=== PATIENT | female | born 1925 | race African-American/Black ===

== ENCOUNTER 2016-09-25 08:38 | Inpatient (IN) | payer MEDICARE, MEDICAID ==
[2016-09-25] MEDS ORDERED: NORMAL SALINE 1000 ML 1,000 ML IV ONE ×2 (09:15)
[2016-09-25] MEDS ORDERED: IPRATROPIUM/ALBUTEROL 0.5-2.5 MG/3 ML AMPUL NEB ONE (09:20)
--- NOTE | 2016-09-25 09:20 | ER Document Report ---
ED General - General Chief Complaint: Fever Stated Complaint: FEVER Time seen by provider: 09:16 Mode of Arrival: Medic Information source: Emergency Med Personnel Cannot obtain history due to: Dementia Notes: 89-year-old female sent from shelter with report by EMS blood pressure 70/ 51 oxygen saturation of 85% on her baseline 2 L nasal cannula and fever the shelter did not report how high. No family is present patient cannot provide history due to dementia. Patient had recent admission with aspiration pneumonia and was discharged with instructions to be nothing by mouth and receive feedings via her PEG tube. Patient arrives with up-to-date outpatient DO NOT RESUSCITATE paperwork from shelter Physical Exam: General: groans to pain tachypnea HEENT: Normocephalic. Atraumatic. PERRLA. Extraocular movements intact. Oropharynx clear. Dry mucous membranes Neck: Supple. Non-tender. No JVD no adenopathy Respiratory: Scattered rhonchi bilaterally breath sounds equal good aeration no accessory muscle use Cardiovascular: Tachycardic regular PMI not displaced. Abdominal: Normal Inspection. Soft, non-tender. No distension. Normal Bowel Sounds. PEG site appears healthy Back: Non-tender. No deformity or step off. Extremities: Extremities are all warm with 2+ pulses contractures noted to both lower extremities brisk upper refill to all extremities and no lesions identified Neurological: Patient cannot cooperate with formal neurologic testing Skin: Warm. Dry. Normal color. TRAVEL OUTSIDE OF THE [place] IN LAST 30 DAYS: No - Related Data Allergies/Adverse Reactions: sulfamethoxazole [From Bactrim] Allergy (Intermediate, Verified 04/28/15 03:44) Generalized rash trimethoprim [From Bactrim] Allergy (Intermediate, Verified 04/28/15 03:44) Generalized rash benazepril HCl [From Lotrel] Allergy (Verified 04/28/15 03:44) Past Medical History - Social History Smoking Status: Unknown if Ever Smoked Family History: Other - Unobtainable due to dementia - Past Medical History Cardiac Medical History: Reports: Hx Hypertension - hypo also Pulmonary Medical History: Reports: Hx Pneumonia Denies: Hx Tuberculosis Renal/ Medical History: Denies: Hx Peritoneal Dialysis GI Medical History: Reports: Hx Gastroesophageal Reflux Disease Musculoskeltal Medical History: Reports Hx Arthritis Psychiatric Medical History: Reports: Hx Dementia Past Surgical History: Reports: Hx Abdominal Surgery - g-tube placement, Hx Orthopedic Surgery. Denies: Hx Pacemaker - Immunizations Hx Diphtheria, Pertussis, Tetanus Vaccination: Yes Review of Systems - Review of Systems -: Yes ROS unobtainable due to patient's medical condition Physical Exam - Vital signs Vitals: Resp 54 H 09/25/16 08:56 Course - Re-evaluation Re-evalutation: 09/25/16 11:27 Patient was hypotensive in the field with since responded IV fluid bolus. He has no evidence for pneumonia or UTI currently. Said of 177 would suggest that patient is volume depleted she's been started on half-normal saline. Also anticipate use freewater flushes via her PEG tube. I discussed case with Dr. Garcia hospitalist service and that service will be admitting the patient - Vital Signs Vital signs: Temp Pulse Resp BP Pulse Ox 101.9 F H 45 H 119/77 95 09/25/16 09:00 09/25/16 10:01 09/25/16 10:01 09/25/16 10:01 - Laboratory Result Diagrams: 09/25/16 09:54 09/25/16 09:54 Laboratory results interpreted by me: 09/25/16 09/25/16 09/25/16 09:54 09:54 09:54 MCHC 31.2 L RDW 16.9 H Plt Count 107 L Band Neutrophils % 11 H Monocytes % (Manual) 1 L Sodium 177.3 H* Chloride 138 H BUN 73 H Creatinine 1.33 H Est GFR ( Amer) 45 L Est GFR (Non-Af Amer) 38 L Glucose 265 H Lactic Acid 3.0 H Calcium 8.0 L Albumin 2.7 L Urine Protein Urine Ketones Urine Ascorbic Acid 09/25/16 10:15 MCHC RDW Plt Count Band Neutrophils % Monocytes % (Manual) Sodium Chloride BUN Creatinine Est GFR ( Amer) Est GFR (Non-Af Amer) Glucose Lactic Acid Calcium Albumin Urine Protein 100 H Urine Ketones TRACE H Urine Ascorbic Acid 40 H - Diagnostic Test Radiology reviewed: Image reviewed, Reports reviewed - EKG Interpretation by Me Additional EKG results interpreted by me: 09/25/16 09:20 EKG reviewed by myself shows sinus tachycardia 110 mild LVH pattern Discharge - Discharge Clinical Impression: Hypernatremia Dementia Qualifiers: Dementia type: unspecified type Dementia behavioral disturbance: without behavioral disturbance Qualified Code(s): F03.90 - Unspecified dementia without behavioral disturbance Condition: Serious Disposition: ADMITTED INPATIENT Admitting Provider: Hospitalist Unit Admitted: Medical Floor
[2016-09-25 10:27] LABS: HEMATOCRIT 42.8 % (36.0-47.0); HEMOGLOBIN 13.4 g/dL (12.0-15.5); HGB HCT DIFFERENCE -2.6; MEAN CORPUSCULAR HEMOGLOBIN 30.1 pg (27.0-33.4); MEAN CORPUSCULAR HGB CONC 31.2 g/dL (32.0-36.0); MEAN CORPUSCULAR VOLUME 96 fl (80-97); RED BLOOD COUNT 4.44 10^6/uL (3.72-5.28); RED CELL DISTRIBUTION WIDTH 16.9 % (11.5-14.0); WHITE BLOOD COUNT 7.6 10^3/uL (4.0-10.5)
[2016-09-25 10:37] LABS: ALANINE AMINOTRANSFERASE 22 U/L (9-52); ALBUMIN 2.7 g/dL (3.5-5.0); ALKALINE PHOSPHATASE 99 U/L (38-126); ANION GAP 15 (5-19); ASPARTATE AMINO TRANSFERASE 34 U/L (14-36); BILIRUBIN,DIRECT 0.2 mg/dL (0.0-0.4); BILIRUBIN,TOTAL 0.7 mg/dL (0.2-1.3); BLOOD UREA NITROGEN 73 mg/dL (7-20); CARBON DIOXIDE 24 mmol/L (22-30); CHLORIDE 138 mmol/L (98-107); CREATININE RESULT 1.33 mg/dL (0.52-1.25); GLUCOSE 265 mg/dL (75-110); LIPASE 56.2 U/L (23-300); POTASSIUM 4.6 mmol/L (3.6-5.0)
[2016-09-25 10:47] LABS: APPEARANCE,URINE CLOUDY; BILIRUBIN,URINE NEGATIVE (NEGATIVE); GLUCOSE, URINE NEGATIVE (NEGATIVE); KETONES,URINE TRACE mg/dL (NEGATIVE); LEUKOCYTE ESTERASE,URINE NEGATIVE (NEGATIVE); NITRITE,URINE NEGATIVE (NEGATIVE); PROTEIN,URINE 100 mg/dL (NEGATIVE); UROBILINOGEN,URINE NEGATIVE mg/dL (<2.0)
[2016-09-25 10:47] LABS: BASOPHILS % (MANUAL) 1 % (0-2); EOSINOPHILS % (MANUAL) 0 % (0-6); LYMPHOCYTES % (MANUAL) 17 % (13-45); TOTAL CELLS COUNTED 100
[2016-09-25 10:48] LABS: ANISOCYTOSIS 1+; BAND NEUTROPHILS % (MANUAL) 11 % (3-5); SODIUM 177.3 mmol/L (137-145)
[2016-09-25] MEDS ORDERED: 1/2 NORMAL SALINE 1,000 ML IV ONE (10:48)
--- NOTE | 2016-09-25 13:25 | EKG REPORT ---
SEVERITY:- ABNORMAL ECG - SINUS TACHYCARDIA LEFT ANTERIOR FASCICULAR BLOCK CONSIDER LEFT VENTRICULAR HYPERTROPHY BORDERLINE PROLONGED QT INTERVAL : Confirmed by: Genaro Sin MD 25-Sep-2016 13:23:27
[2016-09-25] MEDS ORDERED: ACETAMINOPHEN 325 MG TABLET GT PRN (14:31)
[2016-09-25] MEDS ORDERED: DEXTROSE 40% GEL 15 GM TUBE PO PRN ×2 (14:31)
[2016-09-25] MEDS ORDERED: 1/2 NORMAL SALINE 1,000 ML IV PRN (14:31)
[2016-09-25] MEDS ORDERED: GLUCAGON,HUMAN RECOMB 1 MG INJ SUBCUT PRN (14:31)
[2016-09-25] MEDS ORDERED: ONDANSETRON HCL INJ/PF 4 MG/2 ML SDV IV PRN (14:31)
[2016-09-25] MEDS ORDERED: DEXTROSE 50%-WATER 25 GM/50 ML DISP.SYRIN IV PRN ×2 (14:31)
--- NOTE | 2016-09-25 15:44 | PDOC H&P ---
History of Present Illness Admission Date/PCP: 09/25/16 14:32 ALICIA DUMONT Patient complains of: Fever History of Present Illness: ENID SILVA is a 89 year old female, resident of a local sn[facility], with advanced dementia and dysphagia on feeding tube brought to the emergency room because of fever. The patient is nonverbal and unable to communicate therefore history is unobtainable. Information obtained from previous records, emergency room records, snf transfer form. The patient was hospitalized last month for aspiration, he is not on an indwelling Escobar catheter, she has an ankle fracture recently on the R, she has no reported decubitus ulcers. Respirations reportedly elevated. No desaturation was noted however patient was hypotensive when brought to the emergency room. Patient was given intravenous fluid and blood pressure stabilized. Serum sodium elevated at 177. The patient was then referred for admission. Chest x-ray did not reveal an acute infiltrate but chronic interstitial changes. Urinalysis is pending. Creatinine elevated then baseline. Past Medical History Past Medical History: Medication reconciliation form pending verification from the snf or pharmacy. Cardiac Medical History: Reports: Hypertension - hypo also Pulmonary Medical History: Reports: Pneumonia Denies: Tuberculosis GI Medical History: Reports: Gastroesophageal Reflux Disease, Other - Dysphagia status post PEG Musculoskeltal Medical History: Reports: Arthritis Psychiatric Medical History: Reports: Dementia Past Surgical History Past Surgical History: Reports: Orthopedic Surgery, Other - Feeding tube placement Denies: Amputation, Hip Replacement, Pacemaker Social History Information Source: [facility] Records Smoking Status: Unknown if Ever Smoked Frequency of Alcohol Use: None Hx Recreational Drug Use: No Drugs: None Hx Prescription Drug Abuse: No Family History Family History: Other - Unobtainable due to dementia Parental Family History Reviewed: No Children Family History Reviewed: NA Sibling(s) Family History Reviewed.: NA Medication/Allergy Allergies/Adverse Reactions: sulfamethoxazole [From Bactrim] Allergy (Intermediate, Verified 04/28/15 03:44) Generalized rash trimethoprim [From Bactrim] Allergy (Intermediate, Verified 04/28/15 03:44) Generalized rash benazepril HCl [From Lotrel] Allergy (Verified 04/28/15 03:44) Review of Systems ROS unobtainable: Due to mental status - Patient has an out of facility DO NOT RESUSCITATE Physical Exam Vital Signs: Temp Pulse Resp BP Pulse Ox 101.9 F H 28 H 124/75 97 04/10/17 09:00 09/25/16 13:01 09/25/16 13:00 09/25/16 13:01 General appearance: PRESENT: mild distress, thin, other - Contracted Head exam: PRESENT: normocephalic Eye exam: PRESENT: conjunctiva pale, PERRLA - Sluggish Ear exam: PRESENT: normal external ear exam. ABSENT: drainage Mouth exam: PRESENT: dry mucosa Neck exam: PRESENT: other - Contracted. ABSENT: carotid bruit, JVD, thyromegaly Respiratory exam: PRESENT: rhonchi - Occasional, other - Patient's scoliotic. ABSENT: wheezes Cardiovascular exam: PRESENT: RRR, systolic murmur - 2/6 in the left sternal border. ABSENT: gallop GI/Abdominal exam: PRESENT: hypoactive bowel sounds, soft, tenderness - Questionable tenderness as patient grimace on palpation. ABSENT: distended, hernia Rectal exam: PRESENT: deferred Extremities exam: PRESENT: other - Splint noted on the right ankle. ABSENT: pedal edema Neurological exam: PRESENT: awake, other - nonverbal Psychiatric exam: ABSENT: agitated Focused psych exam: ABSENT: restlessness Skin exam: PRESENT: dry, warm, other - I did not see any open wound on the ankles or feet bilateral, nor on the hips or lumbosacral area at this time. ABSENT: cyanosis Results Impressions: Chest X-Ray 09/25/16 09:14 IMPRESSION: CHRONIC INTERSTITIAL CHANGES. CHRONIC BONY DEFORMITIES. NO ACUTE RADIOGRAPHIC FINDING IN THE CHEST. Assessment & Plan - Diagnosis (1) Hypotension Qualifiers: Hypotension type: unspecified hypotension type Qualified Code(s): I95.9 - Hypotension, unspecified Is this a current diagnosis for this admission?: Yes (2) Hypernatremia Is this a current diagnosis for this admission?: Yes (3) Fever Qualifiers: Fever type: unspecified Qualified Code(s): R50.9 - Fever, unspecified Is this a current diagnosis for this admission?: Yes (4) Thrombocytopenia Is this a current diagnosis for this admission?: Yes (5) Hyperglycemia Is this a current diagnosis for this admission?: Yes (6) Closed right ankle fracture Qualifiers: Encounter type: initial encounter Qualified Code(s): S82.891A - Other fracture of right lower leg, initial encounter for closed fracture Is this a current diagnosis for this admission?: Yes (7) Dementia Qualifiers: Dementia type: unspecified type Dementia behavioral disturbance: without behavioral disturbance Qualified Code(s): F03.90 - Unspecified dementia without behavioral disturbance Is this a current diagnosis for this admission?: Yes (8) Dysphagia Qualifiers: Dysphagia type: unspecified Qualified Code(s): R13.10 - Dysphagia, unspecified Is this a current diagnosis for this admission?: Yes (9) Hypertension Qualifiers: Hypertension type: essential hypertension Qualified Code(s): I10 - Essential (primary) hypertension Is this a current diagnosis for this admission?: Yes - Time Time Spent: 30 to 50 Minutes - Inpatient Certification Based on my medical assessment, after consideration of the patient's comorbidities, presenting symptoms, or acuity I expect that the services needed warrant INPATIENT care.: Yes I certify that my determination is in accordance with my understanding of Medicare's requirements for reasonable and necessary INPATIENT services [42 CFR 412.3e].: Yes Medical Necessity: Need Close Monitoring Due to Risk of Patient Decompensation, Need For IV Fluids, Risk of Complication if Not Cared For in Hospital Post Hospital Care: D/C Medical Laboratory Manager Documentation - Plan Summary Plan Summary: We are going to admit the patient to the medical floor. She is a DO NOT RESUSCITATE. She will be hydrated with half-normal saline, begin antibiotic to cover for aspiration empirically, obtain urine culture, and KUB for impaction. In the meantime I will hold antihypertensive medications. We will check TSH and hemoglobin A1c. We will monitor platelet count. We will monitor creatinine as well. Frequent body repositioning to prevent decubitus ulcer. Further testing depends on the initial evaluation as outlined above.
[2016-09-25] MEDS ORDERED: DOCUSATE SODIUM 100 MG/10 ML UDC PEG SCH (18:00)
[2016-09-25] MEDS ORDERED: CEFTRIAXONE 1 GM/D5W RTU 1 GM/50 ML RTUPB IV SCH (18:00)
[2016-09-25] MEDS: HEPARIN SOD (PORCINE) 5,000 UNIT/ML 1 ML SYRINGE SUBCUT SCH (21:28)
[2016-09-25] MEDS: CLINDAMYCIN 600 MG/D5W RTU 50 ML IV SCH (21:29)
[2016-09-26] MEDS: CLINDAMYCIN 600 MG/D5W RTU 50 ML IV SCH (05:58)
[2016-09-26] MEDS: HEPARIN SOD (PORCINE) 5,000 UNIT/ML 1 ML SYRINGE SUBCUT SCH ×3 (05:58→22:09)
[2016-09-26] MEDS: LANSOPRAZOLE 30 MG TAB.RAP.DR PEG SCH (05:59)
[2016-09-26 06:20] LABS: ABSOLUTE EOSINOPHILS # (AUTO) 0.2 10^3/uL (0.0-0.6); ABSOLUTE LYMPHOCYTES (AUTO) 1.5 10^3/uL (0.5-4.7); ABSOLUTE MONOCYTES (AUTO) 0.7 10^3/uL (0.1-1.4); ABSOLUTE NEUT (AUTO) 9.5 10^3/uL (1.7-8.2); BASOPHILS % (AUTO) 0.2 % (0-2); EOSINOPHILS % (AUTO) 1.4 % (0-6); HEMATOCRIT 33.4 % (36.0-47.0); HGB HCT DIFFERENCE -1.6; LYMPHOCYTES % (AUTO) 12.6 % (13-45); MEAN CORPUSCULAR HGB CONC 31.8 g/dL (32.0-36.0); MEAN CORPUSCULAR VOLUME 97 fl (80-97); RED BLOOD COUNT 3.43 10^6/uL (3.72-5.28); RED CELL DISTRIBUTION WIDTH 16.8 % (11.5-14.0); SEGMENTED NEUTROPHILS % (AUTO) 79.8 % (42-78); WHITE BLOOD COUNT 11.9 10^3/uL (4.0-10.5)
[2016-09-26 06:37] LABS: BLOOD UREA NITROGEN 70 mg/dL (7-20); CALCIUM 7.8 mg/dL (8.4-10.2); CARBON DIOXIDE 24 mmol/L (22-30); CHLORIDE 132 mmol/L (98-107); CREATININE RESULT 1.13 mg/dL (0.52-1.25); GLUCOSE 118 mg/dL (75-110); POTASSIUM 3.8 mmol/L (3.6-5.0)
[2016-09-26 06:38] LABS: ANION GAP 15 (5-19)
[2016-09-26 06:42] LABS: HEMOGLOBIN 10.6 g/dL (12.0-15.5)
[2016-09-26 06:43] LABS: SODIUM 170.6 mmol/L (137-145)
[2016-09-26] MEDS ORDERED: ZINC OXIDE 20% OINTMENT 28.35 GM TP PRN (11:22)
[2016-09-26] MEDS ORDERED: DEXTROSE 5%-WATER 1000 ML 1,000 ML IV PRN (11:23)
[2016-09-26] MEDS ORDERED: PHARMACY COMMUNICATION ORDER MC NR (11:30)
[2016-09-26] MEDS ORDERED: VANCOMYCIN HCL 0 MG in DEXTROSE 5%-WATER 250 ML IV NR (11:30)
[2016-09-26] MEDS ORDERED: LACTULOSE SYRUP 20 GM/30 ML UDCUP PR ONE (13:00)
[2016-09-26] MEDS: IPRATROPIUM/ALBUTEROL 0.5-2.5 MG/3 ML AMPUL NEB SCH ×2 (14:02→20:10)
[2016-09-26] MEDS: VANCOMYCIN HCL 500 MG in DEXTROSE 5%-WATER 100 ML IV SCH (18:25)
--- NOTE | 2016-09-26 19:42 | PDOC PROGRESS REPORT ---
Subjective Progress Note for:: 09/26/16 Subjective:: Patient seen earlier today on morning rounds. Unable to obtain review of systems from patient secondary to her mental status. Physical Exam Vital Signs: Temp Pulse Resp BP Pulse Ox 97.7 F 77 22 H 136/79 H 95 09/26/16 14:59 09/26/16 14:59 09/26/16 14:59 09/26/16 14:59 09/26/16 17:15 Intake & Output 09/25/16 09/26/16 09/27/16 06:59 06:59 06:59 Intake Total 0 0 Output Total 0 Balance 0 0 Weight 51.5 kg Exam: General: Lethargic, responsive only to pain, no acute respiratory distress HEENT: oropharynx is dry, pink, no scleral icterus, no conjunctival injection Neck: No JVD, trachea midline Chest: Clear to auscultation bilaterally, no wheezes rhonchi or rales CV: Regular rate and rhythm, normal S1 and S2, +2/6 murmur; no rub or gallop Abdomen: Distended, mildly tender to palpation diffusely, diminished bowel sounds; large open excoriated area around PEG tube with fecal matter present Extremities: No cyanosis, clubbing or edema; right ankle deformity Neuro: Aphasic, contracted Results Laboratory Results: 09/26/16 06:13 09/26/16 06:13 09/25/16 09/25/16 09/26/16 20:22 21:00 06:13 WBC 11.9 H RBC 3.43 L Hgb 10.6 L D Hct 33.4 L MCV 97 MCH 31.0 MCHC 31.8 L RDW 16.8 H Plt Count 100 L Seg Neutrophils % 79.8 H Lymphocytes % 12.6 L Monocytes % 6.0 Eosinophils % 1.4 Basophils % 0.2 Absolute Neutrophils 9.5 H Absolute Lymphocytes 1.5 Absolute Monocytes 0.7 Absolute Eosinophils 0.2 Absolute Basophils 0.0 Sodium Potassium Chloride Carbon Dioxide Anion Gap BUN Creatinine Est GFR ( Amer) Est GFR (Non-Af Amer) Glucose Calcium TSH Cancelled 4.16 09/26/16 06:13 WBC RBC Hgb Hct MCV MCH MCHC RDW Plt Count Seg Neutrophils % Lymphocytes % Monocytes % Eosinophils % Basophils % Absolute Neutrophils Absolute Lymphocytes Absolute Monocytes Absolute Eosinophils Absolute Basophils Sodium 170.6 H* Potassium 3.8 Chloride 132 H Carbon Dioxide 24 Anion Gap 15 BUN 70 H Creatinine 1.13 Est GFR ( Amer) 55 L Est GFR (Non-Af Amer) 45 L Glucose 118 H Calcium 7.8 L TSH Impressions: KUB X-Ray 09/25/16 00:00 IMPRESSION: Fecal impaction with large amount of stool in the rectum. Large amount of stool in the descending and sigmoid colon. Chest X-Ray 09/25/16 09:14 IMPRESSION: CHRONIC INTERSTITIAL CHANGES. CHRONIC BONY DEFORMITIES. NO ACUTE RADIOGRAPHIC FINDING IN THE CHEST. Ankle X-Ray 09/26/16 00:00 IMPRESSION: Medial and lateral malleolar fractures, posterior distal right tibial articular fracture. Fracture lines are mildly displaced however the ankle mortise appears grossly intact. Assessment & Plan - Diagnosis (1) Trimalleolar fracture of ankle, closed Qualifiers: Encounter type: initial encounter Laterality: right Qualified Code(s): S82.851A - Displaced trimalleolar fracture of right lower leg, initial encounter for closed fracture Is this a current diagnosis for this admission?: YesPlan: Patient with trimalleolar fracture of the right ankle. Will consult orthopedics for appropriate management. Unsure as to the duration and cause of this injury. Concerned as patient appears to be normally immobile. Replace splint. (2) Sepsis Qualifiers: Sepsis type: sepsis due to unspecified organism Qualified Code(s): A41.9 - Sepsis, unspecified organism Is this a current diagnosis for this admission?: YesPlan: Concern for Escherichia coli and other gram-negative enteric organisms due to patient's fecal impaction (3) Aspiration pneumonia Qualifiers: Aspiration pneumonia type: unspecified Laterality: bilateral Lung location: lower lobe of lung Qualified Code(s): J69.0 - Pneumonitis due to inhalation of food and vomit Is this a current diagnosis for this admission?: YesPlan: Likely secondary to fecal aspiration from fecal impaction. Will change patient to vancomycin and Zosyn given her living in a residential facility with concerns possibly also for healthcare associated pneumonia. (4) Dementia Qualifiers: Dementia type: unspecified type Dementia behavioral disturbance: without behavioral disturbance Qualified Code(s): F03.90 - Unspecified dementia without behavioral disturbance Is this a current diagnosis for this admission?: YesPlan: Supportive care (5) Hypernatremia Is this a current diagnosis for this admission?: YesPlan: We'll transition patient to D5W. Once her fecal impaction is improved will start free water flushes. (6) Thrombocytopenia Is this a current diagnosis for this admission?: YesPlan: Likely secondary to sepsis (7) Acute hypoxemic respiratory failure Is this a current diagnosis for this admission?: YesPlan: Continue oxygen as needed to maintain a saturation greater than 94% (8) Dementia Qualifiers: Dementia type: unspecified type Dementia behavioral disturbance: without behavioral disturbance Qualified Code(s): F03.90 - Unspecified dementia without behavioral disturbance Is this a current diagnosis for this admission?: YesPlan: Supportive care (9) Encephalopathy Is this a current diagnosis for this admission?: YesPlan: Patient appears to be altered more than baseline likely secondary to hypernatremia. (10) Hypertension Qualifiers: Hypertension type: essential hypertension Qualified Code(s): I10 - Essential (primary) hypertension Is this a current diagnosis for this admission?: Yes - Time Time Spent with patient: 25-34 minutes Medications reviewed and adjusted accordingly: Yes
[2016-09-26] MEDS: NYSTATIN CREAM 15 GM TP SCH (22:03)
[2016-09-26] MEDS: PIPERACILLIN SODIUM/TAZOBACTAM 3.375 GM in NORMAL SALINE 100 ML IV SCH (22:08)
[2016-09-27] MEDS: PIPERACILLIN SODIUM/TAZOBACTAM 3.375 GM in NORMAL SALINE 100 ML IV SCH ×3 (04:17→21:13)
[2016-09-27] MEDS: LANSOPRAZOLE 30 MG TAB.RAP.DR PEG SCH (05:21)
[2016-09-27] MEDS: HEPARIN SOD (PORCINE) 5,000 UNIT/ML 1 ML SYRINGE SUBCUT SCH ×3 (05:21→21:06)
[2016-09-27] MEDS ORDERED: NORMAL SALINE 1000 ML 500 ML IV ONE (06:00)
--- NOTE | 2016-09-27 07:18 | PDOC CONSULTATION ---
Consultation Consult Date: 09/27/16 Attending physician:: LICO GRIFFITH Consult reason:: Ankle fracture History of Present Illness Admission Date/PCP: 09/25/16 14:32 ALICIA DUMONT History of Present Illness: ENID SILVA is a 89 year old female, resident of a local [facility], with advanced dementia and dysphagia on feeding tube brought to the emergency room because of fever. The patient is nonverbal and unable to communicate therefore history is unobtainable. According to history exact etiology patient's right ankle fracture. Past Medical History Cardiac Medical History: Reports: Hypertension - hypo also Pulmonary Medical History: Reports: Pneumonia Denies: Tuberculosis GI Medical History: Reports: Gastroesophageal Reflux Disease, Other - Dysphagia status post PEG Musculoskeltal Medical History: Reports: Arthritis Psychiatric Medical History: Reports: Dementia Past Surgical History Past Surgical History: Reports: Orthopedic Surgery, Other - Feeding tube placement Denies: Amputation, Hip Replacement, Pacemaker Social History Smoking Status: Never Smoker Frequency of Alcohol Use: None Hx Recreational Drug Use: No Drugs: None Hx Prescription Drug Abuse: No - Advance Directive Resuscitation Status: Do Not Resuscitate Family History Family History: Other - Unobtainable due to dementia Parental Family History Reviewed: No Children Family History Reviewed: No Sibling(s) Family History Reviewed.: No Medication/Allergy Home Medications: Acetaminophen [Tylenol Susp 160 mg/5 mL Oral Syring] 20 ml GT Q4HP PRN 09/25/16 Amlodipine Besylate [Norvasc 5 mg Tablet] 5 mg GT DAILY 09/25/16 Lansoprazole [Prevacid 15 mg Odt Tablet] 15 mg GT DAILY 09/25/16 Losartan/Hydrochlorothiazide [Hyzaar 100-12.5 Tablet] 1 tab GT DAILY 09/25/16 Multivits W-Min/Ferrous Gluc [Certa Blanquita Liquid] 15 ml GT DAILY 09/25/16 Potassium Chloride [Kaon-Cl 20 Meq/15 ml Udcup] 15 ml GT DAILY 09/25/16 Allergies/Adverse Reactions: sulfamethoxazole [From Bactrim] Allergy (Intermediate, Verified 04/28/15 03:44) Generalized rash trimethoprim [From Bactrim] Allergy (Intermediate, Verified 04/28/15 03:44) Generalized rash benazepril HCl [From Lotrel] Allergy (Verified 04/28/15 03:44) Review of Systems ROS unobtainable: Due to mental status Physical Exam Vital Signs: Temp Pulse Resp BP Pulse Ox 98.1 F 93 29 H 122/98 H 100 09/26/16 23:40 09/26/16 23:40 09/26/16 23:40 09/26/16 23:40 09/26/16 23:40 Intake & Output 09/25/16 09/26/16 09/27/16 06:59 06:59 06:59 Intake Total 0 1200 Output Total 0 Balance 0 1200 Weight 51.5 kg General appearance: PRESENT: no acute distress, thin Head exam: PRESENT: normocephalic Eye exam: PRESENT: conjunctiva pale Ear exam: PRESENT: normal external ear exam Mouth exam: PRESENT: moist Respiratory exam: PRESENT: unlabored Cardiovascular exam: PRESENT: RRR Pulses: PRESENT: normal dorsalis pedis pul Musculoskeletal exam: PRESENT: other - Right lower extremity. There is evidence of skin breakdown along the medial and lateral malleoli. Mild swelling. Tenderness to palpation. Pain with range of motion. Unable to assess neurologic status given patient's mental status. Patient contracted position Neurological exam: PRESENT: awake, other - Disoriented to time place and situation. Psychiatric exam: PRESENT: flat affect Results Laboratory Results: 09/26/16 06:13 09/26/16 06:13 Impressions: KUB X-Ray 09/25/16 00:00 IMPRESSION: Fecal impaction with large amount of stool in the rectum. Large amount of stool in the descending and sigmoid colon. Chest X-Ray 09/25/16 09:14 IMPRESSION: CHRONIC INTERSTITIAL CHANGES. CHRONIC BONY DEFORMITIES. NO ACUTE RADIOGRAPHIC FINDING IN THE CHEST. Ankle X-Ray 09/26/16 00:00 IMPRESSION: Medial and lateral malleolar fractures, posterior distal right tibial articular fracture. Fracture lines are mildly displaced however the ankle mortise appears grossly intact. Status: Image reviewed by me - I have reviewed patient's radiographs which demonstrate significant osteopenia. Trimalleolar ankle fracture early evidence of callus formation. Mild subluxation dorsally. Assessment & Plan - Diagnosis (1) Trimalleolar fracture of ankle, closed Qualifiers: Encounter type: initial encounter Laterality: right Qualified Code(s): S82.851A - Displaced trimalleolar fracture of right lower leg, initial encounter for closed fracture Is this a current diagnosis for this admission?: YesPlan: Unable to obtain adequate history determine cause of patient's ankle fracture. Given her significant contractures and lack of mobility this is unlikely secondary to a fall a more associated with a torsional type injury. Given radiographs do demonstrate early evidence of healing there is no subluxation I feel strict immobilization will likely cause more skin breakdown issues as opposed to improving patient condition. Thus patient will begin awa bandage as opposed to ankle brace because continuously removing is likely causing more rotation and pain.
[2016-09-27] MEDS ORDERED: NORMAL SALINE 1000 ML 1,000 ML IV ONE (07:59)
[2016-09-27] MEDS: IPRATROPIUM/ALBUTEROL 0.5-2.5 MG/3 ML AMPUL NEB SCH ×3 (08:06→20:46)
[2016-09-27 09:02] LABS: HEMATOCRIT 31.8 % (36.0-47.0); HGB HCT DIFFERENCE -1.8; MEAN CORPUSCULAR HEMOGLOBIN 30.8 pg (27.0-33.4); MEAN CORPUSCULAR HGB CONC 31.4 g/dL (32.0-36.0); MEAN CORPUSCULAR VOLUME 98 fl (80-97); RED BLOOD COUNT 3.23 10^6/uL (3.72-5.28); RED CELL DISTRIBUTION WIDTH 16.9 % (11.5-14.0); WHITE BLOOD COUNT 10.2 10^3/uL (4.0-10.5)
[2016-09-27 09:17] LABS: ANION GAP 15 (5-19); BLOOD UREA NITROGEN 62 mg/dL (7-20); CALCIUM 7.3 mg/dL (8.4-10.2); CARBON DIOXIDE 20 mmol/L (22-30); CHLORIDE 133 mmol/L (98-107); CREATININE RESULT 1.29 mg/dL (0.52-1.25); GLUCOSE 135 mg/dL (75-110); SODIUM 167.5 mmol/L (137-145)
[2016-09-27 09:58] LABS: BASOPHILS % (MANUAL) 0 % (0-2); EOSINOPHILS % (MANUAL) 2 % (0-6); LYMPHOCYTES % (MANUAL) 5 % (13-45); TOTAL CELLS COUNTED 100
[2016-09-27 10:02] LABS: ANISOCYTOSIS 1+; ROULEAUX SLIGHT
[2016-09-27] MEDS ORDERED: POTASSI CL 20 MEQ/50 ML RIDER 20 MEQ/50 ML RTUPB IV SCH (12:00)
[2016-09-27] MEDS ORDERED: DEXTROSE 5%-WATER 1000 ML 1,000 ML IV PRN (15:57)
[2016-09-27] MEDS ORDERED: OXYCODONE HCL IR 5 MG TABLET PEG PRN (16:01)
[2016-09-27] MEDS ORDERED: MORPHINE SULFATE 10 MG/ML INJ IV PRN (16:02)
--- NOTE | 2016-09-27 16:08 | PDOC PROGRESS REPORT ---
Subjective Progress Note for:: 09/27/16 Subjective:: Patient seen earlier today on morning rounds. Unable to obtain review of systems from patient secondary to her mental status. Discussed case with her son who is present at bedside. Physical Exam Vital Signs: Temp Pulse Resp BP Pulse Ox 99.4 F 91 29 H 91/49 L 99 09/27/16 04:45 09/27/16 04:45 09/27/16 04:45 09/27/16 04:45 09/27/16 04:45 Intake & Output 09/26/16 09/27/16 09/28/16 06:59 06:59 06:59 Intake Total 0 1200 Output Total 0 Balance 0 1200 Weight 51.5 kg 53.1 kg Exam: General: Lethargic, responsive only to pain, tachypnea HEENT: oropharynx is dry, pink, no scleral icterus, no conjunctival injection Neck: No JVD, trachea midline Chest: Clear to auscultation bilaterally, no wheezes rhonchi or rales CV: Tachycardic, Regular rate and rhythm, normal S1 and S2, +2/6 murmur; no rub or gallop Abdomen: Distended, mildly tender to palpation diffusely, diminished bowel sounds; large open excoriated area around PEG tube with excoriation Extremities: No cyanosis, clubbing or edema; right ankle deformity Neuro: Aphasic, contracted Results Laboratory Results: 09/26/16 06:13 09/26/16 06:13 Impressions: KUB X-Ray 09/25/16 00:00 IMPRESSION: Fecal impaction with large amount of stool in the rectum. Large amount of stool in the descending and sigmoid colon. Chest X-Ray 09/25/16 09:14 IMPRESSION: CHRONIC INTERSTITIAL CHANGES. CHRONIC BONY DEFORMITIES. NO ACUTE RADIOGRAPHIC FINDING IN THE CHEST. Ankle X-Ray 09/26/16 00:00 IMPRESSION: Medial and lateral malleolar fractures, posterior distal right tibial articular fracture. Fracture lines are mildly displaced however the ankle mortise appears grossly intact. Assessment & Plan - Diagnosis (1) Sepsis Qualifiers: Sepsis type: sepsis due to unspecified organism Qualified Code(s): A41.9 - Sepsis, unspecified organism Is this a current diagnosis for this admission?: YesPlan: Concern for Escherichia coli and other gram-negative enteric organisms due to patient's fecal impaction. Continue patient on vancomycin and Zosyn. Consider addition of Levaquin and Zithromax for atypical organisms. (2) Aspiration pneumonia Qualifiers: Aspiration pneumonia type: unspecified Laterality: bilateral Lung location: lower lobe of lung Qualified Code(s): J69.0 - Pneumonitis due to inhalation of food and vomit Is this a current diagnosis for this admission?: YesPlan: Likely secondary to fecal aspiration from fecal impaction. Patient to vancomycin and Zosyn day #2. Given her living in a residential facility with concerns possibly also for healthcare associated pneumonia. (3) Trimalleolar fracture of ankle, closed Qualifiers: Encounter type: initial encounter Laterality: right Qualified Code(s): S82.851A - Displaced trimalleolar fracture of right lower leg, initial encounter for closed fracture Is this a current diagnosis for this admission?: YesPlan: Patient with trimalleolar fracture of the right ankle. Will consult orthopedics for appropriate management. We'll place Sathya bandage as indicated by orthopedics. Discussed with patient's son and very unclear as to cause for this type of torsion injury for this patient. Concern at this time for potential abuse will contact [facility]PS. (4) Dementia Qualifiers: Dementia type: unspecified type Dementia behavioral disturbance: without behavioral disturbance Qualified Code(s): F03.90 - Unspecified dementia without behavioral disturbance Is this a current diagnosis for this admission?: YesPlan: Supportive care Have consulted palliative care (5) Hypernatremia Is this a current diagnosis for this admission?: YesPlan: Patient on D5W. Once her fecal impaction is improved will start free water flushes. (6) Thrombocytopenia Is this a current diagnosis for this admission?: YesPlan: Likely secondary to sepsis (7) Acute hypoxemic respiratory failure Is this a current diagnosis for this admission?: YesPlan: Continue oxygen as needed to maintain a saturation greater than 94% (8) Encephalopathy Is this a current diagnosis for this admission?: YesPlan: Patient appears to be altered more than baseline likely secondary to hypernatremia. (9) Hypertension Qualifiers: Hypertension type: essential hypertension Qualified Code(s): I10 - Essential (primary) hypertension Is this a current diagnosis for this admission?: Yes - Time Time Spent with patient: 35 or more minutes Medications reviewed and adjusted accordingly: Yes - Inpatient Certification Medical Necessity: Need For IV Fluids Post Hospital Care: D/C Emergency Communications Operator Documentation
[2016-09-27] MEDS: NYSTATIN CREAM 15 GM TP SCH (21:04)
[2016-09-27] MEDS: BACITRACIN ZINC OINTMENT 15 GM TP SCH (21:04)
[2016-09-27] MEDS: MINERAL OIL ENEMA 133 ML PR SCH (21:04)
[2016-09-27] MEDS: VANCOMYCIN HCL 500 MG in DEXTROSE 5%-WATER 100 ML IV SCH (21:04)
[2016-09-27] MEDS: POTASSI CL 20 MEQ/50 ML RIDER 20 MEQ/50 ML RTUPB IV SCH (22:59)
[2016-09-28] MEDS: POTASSI CL 20 MEQ/50 ML RIDER 20 MEQ/50 ML RTUPB IV SCH ×3 (01:03→05:48)
[2016-09-28] MEDS: PIPERACILLIN SODIUM/TAZOBACTAM 3.375 GM in NORMAL SALINE 100 ML IV SCH ×2 (03:15→08:53)
[2016-09-28 05:17] LABS: ANION GAP 12 (5-19); BLOOD UREA NITROGEN 51 mg/dL (7-20); CALCIUM 7.2 mg/dL (8.4-10.2); CARBON DIOXIDE 19 mmol/L (22-30); CHLORIDE 137 mmol/L (98-107); CREATININE RESULT 1.14 mg/dL (0.52-1.25); GLUCOSE 98 mg/dL (75-110); MAGNESIUM 2.7 mg/dL (1.6-2.3); PHOSPHORUS 3.7 mg/dL (2.5-4.5); POTASSIUM 3.7 mmol/L (3.6-5.0); SODIUM 167.8 mmol/L (137-145)
[2016-09-28] MEDS: HEPARIN SOD (PORCINE) 5,000 UNIT/ML 1 ML SYRINGE SUBCUT SCH (05:31)
[2016-09-28] MEDS: LANSOPRAZOLE 30 MG TAB.RAP.DR PEG SCH (05:31)
[2016-09-28 05:41] LABS: ABSOLUTE EOSINOPHILS # (AUTO) 0.3 10^3/uL (0.0-0.6); ABSOLUTE MONOCYTES (AUTO) 0.5 10^3/uL (0.1-1.4); ABSOLUTE NEUT (AUTO) 7.1 10^3/uL (1.7-8.2); BASOPHILS % (AUTO) 0.2 % (0-2); HEMATOCRIT 27.1 % (36.0-47.0); HGB HCT DIFFERENCE -0.1; LYMPHOCYTES % (AUTO) 11.3 % (13-45); MEAN CORPUSCULAR HEMOGLOBIN 31.3 pg (27.0-33.4); MEAN CORPUSCULAR HGB CONC 33.1 g/dL (32.0-36.0); MEAN CORPUSCULAR VOLUME 95 fl (80-97); MONOCYTES % (AUTO) 5.7 % (3-13); RED BLOOD COUNT 2.87 10^6/uL (3.72-5.28); RED CELL DISTRIBUTION WIDTH 15.9 % (11.5-14.0); SEGMENTED NEUTROPHILS % (AUTO) 79.8 % (42-78); WHITE BLOOD COUNT 8.9 10^3/uL (4.0-10.5)
[2016-09-28] MEDS: IPRATROPIUM/ALBUTEROL 0.5-2.5 MG/3 ML AMPUL NEB SCH (08:30)
[2016-09-28] MEDS: MINERAL OIL ENEMA 133 ML PR SCH (09:06)
[2016-09-28] MEDS: BACITRACIN ZINC OINTMENT 15 GM TP SCH (09:06)
[2016-09-28] MEDS: NYSTATIN CREAM 15 GM TP SCH ×2 (09:06→17:28)
[2016-09-28] MEDS ORDERED: VANCOMYCIN HCL 500 MG in DEXTROSE 5%-WATER 100 ML IV SCH (10:00)
[2016-09-28] MEDS ORDERED: MORPHINE SULFATE 10 MG/ML INJ IV PRN (11:14)
[2016-09-28] MEDS ORDERED: LORAZEPAM INJ 2 MG/1 ML VIAL IV PRN (11:14)
--- NOTE | 2016-09-28 19:18 | PDOC PROGRESS REPORT ---
Subjective Progress Note for:: 09/28/16 Subjective:: Patient seen earlier today on morning rounds. Unable to obtain review of systems from patient secondary to her mental status. Hospice discussed case with patient family and they agreed to comfort measures/ hospice. Physical Exam Vital Signs: Temp Pulse Resp BP Pulse Ox 98.3 F 70 28 H 124/66 100 09/28/16 04:00 09/28/16 04:00 09/28/16 04:00 09/28/16 04:00 09/28/16 04:00 Intake & Output 09/27/16 09/28/16 09/29/16 06:59 06:59 06:59 Intake Total 1200 2700 Balance 1200 2700 Weight 53.1 kg 53.1 kg Exam: General: Eyes open, ears to be in pain, tachypnea HEENT: oropharynx is dry, pink, no scleral icterus, no conjunctival injection Neck: No JVD, trachea midline Chest: Rhonchi bilaterally, occasional Rales CV: Tachycardic, Regular rate and rhythm, normal S1 and S2, +2/6 murmur; no rub or gallop Abdomen: Distended, mildly tender to palpation diffusely, diminished bowel sounds; large open excoriated area around PEG tube with excoriation Extremities: No cyanosis, clubbing or edema; right ankle deformity Neuro: Aphasic, contracted Results Laboratory Results: 09/28/16 03:47 09/28/16 03:47 09/27/16 09/27/16 09/27/16 08:35 08:35 08:35 WBC 10.2 RBC 3.23 L Hgb 10.0 L Hct 31.8 L MCV 98 H MCH 30.8 MCHC 31.4 L RDW 16.9 H Plt Count 91 L Seg Neutrophils % Not Reportable Lymphocytes % Not Reportable Monocytes % Not Reportable Eosinophils % Not Reportable Basophils % Not Reportable Absolute Neutrophils Not Reportable Absolute Lymphocytes Not Reportable Absolute Monocytes Not Reportable Absolute Eosinophils Not Reportable Absolute Basophils Not Reportable Sodium 167.5 H Potassium 3.0 L* Chloride 133 H Carbon Dioxide 20 L Anion Gap 15 BUN 62 H Creatinine 1.29 H Est GFR ( Amer) 47 L Est GFR (Non-Af Amer) 39 L Glucose 135 H Calcium 7.3 L Phosphorus Magnesium 2.9 H 09/28/16 09/28/16 03:47 03:47 WBC 8.9 RBC 2.87 L Hgb 9.0 L Hct 27.1 L MCV 95 MCH 31.3 MCHC 33.1 RDW 15.9 H Plt Count 83 L Seg Neutrophils % 79.8 H Lymphocytes % 11.3 L Monocytes % 5.7 Eosinophils % 3.0 Basophils % 0.2 Absolute Neutrophils 7.1 Absolute Lymphocytes 1.0 Absolute Monocytes 0.5 Absolute Eosinophils 0.3 Absolute Basophils 0.0 Sodium 167.8 H Potassium 3.7 Chloride 137 H Carbon Dioxide 19 L Anion Gap 12 BUN 51 H Creatinine 1.14 Est GFR ( Amer) 54 L Est GFR (Non-Af Amer) 45 L Glucose 98 Calcium 7.2 L Phosphorus 3.7 Magnesium 2.7 H Impressions: KUB X-Ray 09/25/16 00:00 IMPRESSION: Fecal impaction with large amount of stool in the rectum. Large amount of stool in the descending and sigmoid colon. Chest X-Ray 09/25/16 09:14 IMPRESSION: CHRONIC INTERSTITIAL CHANGES. CHRONIC BONY DEFORMITIES. NO ACUTE RADIOGRAPHIC FINDING IN THE CHEST. Ankle X-Ray 09/26/16 00:00 IMPRESSION: Medial and lateral malleolar fractures, posterior distal right tibial articular fracture. Fracture lines are mildly displaced however the ankle mortise appears grossly intact. Assessment & Plan - Diagnosis (1) Sepsis Qualifiers: Sepsis type: sepsis due to unspecified organism Qualified Code(s): A41.9 - Sepsis, unspecified organism Is this a current diagnosis for this admission?: YesPlan: We'll place patient on morphine and Ativan for comfort. (2) Aspiration pneumonia Qualifiers: Aspiration pneumonia type: unspecified Laterality: bilateral Lung location: lower lobe of lung Qualified Code(s): J69.0 - Pneumonitis due to inhalation of food and vomit Is this a current diagnosis for this admission?: Yes (3) Trimalleolar fracture of ankle, closed Qualifiers: Encounter type: initial encounter Laterality: right Qualified Code(s): S82.851A - Displaced trimalleolar fracture of right lower leg, initial encounter for closed fracture Is this a current diagnosis for this admission?: Yes (4) Dementia Qualifiers: Dementia type: unspecified type Dementia behavioral disturbance: without behavioral disturbance Qualified Code(s): F03.90 - Unspecified dementia without behavioral disturbance Is this a current diagnosis for this admission?: Yes (5) Hypernatremia Is this a current diagnosis for this admission?: Yes (6) Thrombocytopenia Is this a current diagnosis for this admission?: Yes (7) Acute hypoxemic respiratory failure Is this a current diagnosis for this admission?: Yes (8) Encephalopathy Is this a current diagnosis for this admission?: Yes (9) Hypertension Qualifiers: Hypertension type: essential hypertension Qualified Code(s): I10 - Essential (primary) hypertension Is this a current diagnosis for this admission?: Yes - Time Time Spent with patient: 25-34 minutes Medications reviewed and adjusted accordingly: Yes
[2016-09-29] MEDS: NYSTATIN CREAM 15 GM TP SCH ×2 (10:13→17:15)
[2016-09-29] MEDS: BACITRACIN ZINC OINTMENT 15 GM TP SCH (10:13)
[2016-09-29] MEDS ORDERED: MORPHINE SULFATE 10 MG/ML INJ IV PRN (15:28)
[2016-09-29] MEDS: AMPICILLIN SODIUM/SULBACTAM NA 3 GM in NORMAL SALINE 100 ML IV SCH (15:51)
--- NOTE | 2016-09-29 16:48 | PDOC PROGRESS REPORT ---
Subjective Progress Note for:: 09/29/16 Subjective:: Patient seen earlier today on morning rounds. Unable to obtain review of systems from patient secondary to her mental status. Apparently there was some misunderstanding with patient's family understanding the difference between comfort measures and comfortable. Will resume more aggressive care today. Physical Exam Vital Signs: Temp Pulse Resp BP Pulse Ox 99.4 F 69 23 H 135/65 H 100 09/28/16 19:36 09/28/16 19:36 09/28/16 19:36 09/28/16 19:36 09/28/16 19:36 Intake & Output 09/28/16 09/29/16 09/30/16 06:59 06:59 06:59 Intake Total 2700 750 Balance 2700 750 Weight 53.1 kg Exam: General: Resting comfortably, no acute respiratory distress HEENT: Atraumatic, normocephalic, pupils equal round and reactive to light, oropharynx is slightly dry, pink, no scleral icterus, no conjunctival injection Neck: No JVD, trachea midline Chest: Rhonchi bilateral bases, otherwise clear CV: Tachycardic, Regular rate and rhythm, normal S1 and S2, +2/6 murmur; no rub or gallop Abdomen: Distended, mildly tender to palpation diffusely, diminished bowel sounds; large open excoriated area around PEG tube with excoriation Extremities: No cyanosis, clubbing or edema; right ankle deformity Neuro: Aphasic, contracted Results Laboratory Results: 09/28/16 03:47 09/28/16 03:47 09/28/16 08:40 Lactic Acid 0.9 Impressions: Chest X-Ray 09/25/16 09:14 IMPRESSION: CHRONIC INTERSTITIAL CHANGES. CHRONIC BONY DEFORMITIES. NO ACUTE RADIOGRAPHIC FINDING IN THE CHEST. Ankle X-Ray 09/26/16 00:00 IMPRESSION: Medial and lateral malleolar fractures, posterior distal right tibial articular fracture. Fracture lines are mildly displaced however the ankle mortise appears grossly intact. KUB X-Ray 09/28/16 00:00 IMPRESSION: LIMITED STUDY. NO RADIOGRAPHIC EVIDENCE FOR ACUTE ABDOMINAL DISEASE. PREVIOUSLY SEEN LARGE QUANTITY OF STOOL HAS IMPROVED. Assessment & Plan - Diagnosis (1) Sepsis Qualifiers: Sepsis type: sepsis due to unspecified organism Qualified Code(s): A41.9 - Sepsis, unspecified organism Is this a current diagnosis for this admission?: YesPlan: Patient with staph aureus bacteremia. Will place patient on Unasyn. Secondary to underlying pneumonia. (2) Aspiration pneumonia Qualifiers: Aspiration pneumonia type: unspecified Laterality: bilateral Lung location: lower lobe of lung Qualified Code(s): J69.0 - Pneumonitis due to inhalation of food and vomit Is this a current diagnosis for this admission?: YesPlan: Have transition patient to Unasyn and clindamycin. (3) Trimalleolar fracture of ankle, closed Qualifiers: Encounter type: initial encounter Laterality: right Qualified Code(s): S82.851A - Displaced trimalleolar fracture of right lower leg, initial encounter for closed fracture Is this a current diagnosis for this admission?: YesPlan: Patient with trimalleolar fracture of the right ankle. We'll place Sathya bandage as indicated by orthopedics. Discussed with patient's son and very unclear as to cause for this type of torsion injury for this patient. Concern at this time for potential abuse will contact [facility]PS. (4) Dementia Qualifiers: Dementia type: unspecified type Dementia behavioral disturbance: without behavioral disturbance Qualified Code(s): F03.90 - Unspecified dementia without behavioral disturbance Is this a current diagnosis for this admission?: YesPlan: Supportive care Have consulted palliative care (5) Hypernatremia Is this a current diagnosis for this admission?: YesPlan: Resume D5W. Hourly free water flushes. (6) Thrombocytopenia Is this a current diagnosis for this admission?: Yes (7) Acute hypoxemic respiratory failure Is this a current diagnosis for this admission?: YesPlan: Continue oxygen as needed to maintain a saturation greater than 94% (8) Encephalopathy Is this a current diagnosis for this admission?: YesPlan: Patient appears to be altered more than baseline likely secondary to hypernatremia. (9) Hypertension Qualifiers: Hypertension type: essential hypertension Qualified Code(s): I10 - Essential (primary) hypertension Is this a current diagnosis for this admission?: YesPlan: Currently with good blood pressure at 137/74 at 1600. Will continue to monitor and add medications as needed. - Time Time Spent with patient: 25-34 minutes Medications reviewed and adjusted accordingly: Yes
[2016-09-29] MEDS: LACTOBACILLUS ACIDOPHILUS 250 MG TAB PEG SCH (17:13)
[2016-09-29] MEDS: DEXTROSE 5%-WATER 1000 ML 1,000 ML IV PRN (17:14)
[2016-09-29] MEDS: CLINDAMYCIN 300 MG/D5W RTU 50 ML IV SCH (21:54)
[2016-09-30] MEDS: CLINDAMYCIN 300 MG/D5W RTU 50 ML IV SCH ×3 (05:21→21:40)
[2016-09-30] MEDS: AMPICILLIN SODIUM/SULBACTAM NA 3 GM in NORMAL SALINE 100 ML IV SCH ×2 (05:21→15:30)
[2016-09-30 05:58] LABS: ANION GAP 13 (5-19); BLOOD UREA NITROGEN 21 mg/dL (7-20); CALCIUM 7.8 mg/dL (8.4-10.2); CARBON DIOXIDE 22 mmol/L (22-30); CHLORIDE 126 mmol/L (98-107); CREATININE RESULT 0.73 mg/dL (0.52-1.25); GLUCOSE 123 mg/dL (75-110); MAGNESIUM 2.3 mg/dL (1.6-2.3); PHOSPHORUS 2.8 mg/dL (2.5-4.5); POTASSIUM 3.3 mmol/L (3.6-5.0); SODIUM 161.2 mmol/L (137-145)
[2016-09-30 06:06] LABS: ABSOLUTE EOSINOPHILS # (AUTO) 0.2 10^3/uL (0.0-0.6); ABSOLUTE LYMPHOCYTES (AUTO) 1.1 10^3/uL (0.5-4.7); ABSOLUTE MONOCYTES (AUTO) 0.5 10^3/uL (0.1-1.4); ABSOLUTE NEUT (AUTO) 5.1 10^3/uL (1.7-8.2); BASOPHILS % (AUTO) 0.1 % (0-2); HEMATOCRIT 33.9 % (36.0-47.0); HEMOGLOBIN 10.9 g/dL (12.0-15.5); HGB HCT DIFFERENCE -1.2; LYMPHOCYTES % (AUTO) 15.9 % (13-45); MEAN CORPUSCULAR HEMOGLOBIN 30.5 pg (27.0-33.4); MEAN CORPUSCULAR HGB CONC 32.3 g/dL (32.0-36.0); MEAN CORPUSCULAR VOLUME 95 fl (80-97); RED BLOOD COUNT 3.59 10^6/uL (3.72-5.28); RED CELL DISTRIBUTION WIDTH 16.1 % (11.5-14.0); WHITE BLOOD COUNT 6.9 10^3/uL (4.0-10.5)
[2016-09-30] MEDS ORDERED: POTASSIUM CHLORIDE 20 MEQ/15 ML UDCUP PEG ONE (07:29)
[2016-09-30] MEDS ORDERED: ALBUTEROL SULFATE 0.083% NEB 2.5 MG/3 ML AMPUL NEB PRN (10:35)
[2016-09-30] MEDS: NYSTATIN CREAM 15 GM TP SCH ×2 (10:54→17:23)
[2016-09-30] MEDS: BACITRACIN ZINC OINTMENT 15 GM TP SCH (10:55)
[2016-09-30] MEDS: POLYETHYLENE GLYCOL 3350 POWDER 17 GM/1 PACKET PEG SCH (11:19)
[2016-09-30] MEDS: LACTOBACILLUS ACIDOPHILUS 250 MG TAB PEG SCH ×2 (11:19→18:32)
[2016-09-30] MEDS: DEXTROSE 5%-WATER 1000 ML 1,000 ML IV PRN (12:23)
[2016-09-30] MEDS ORDERED: MORPHINE SULFATE 10 MG/ML INJ IV PRN (15:27)
--- NOTE | 2016-09-30 15:38 | PDOC PROGRESS REPORT ---
Subjective Progress Note for:: 09/30/16 Subjective:: Patient seen earlier today on morning rounds. Unable to obtain review of systems from patient secondary to her mental status. Physical Exam Vital Signs: Temp Pulse Resp BP Pulse Ox 98.9 F 85 27 H 130/73 H 98 09/30/16 12:00 09/30/16 13:40 09/30/16 13:40 09/30/16 12:00 09/30/16 13:40 Intake & Output 09/29/16 09/30/16 10/01/16 06:59 06:59 06:59 Intake Total 750 1013 218 Balance 750 1013 218 Exam: General: Resting comfortably, no acute respiratory distress, tachypnea HEENT: Atraumatic, normocephalic, pupils equal round and reactive to light, oropharynx is slightly dry, pink, no scleral icterus, no conjunctival injection Neck: No JVD, trachea midline Chest: Clear to auscultation anteriorly, posteriorly bibasal rhonchi CV: Tachycardic, Regular rate and rhythm, normal S1 and S2, +2/6 murmur; no rub or gallop Abdomen: Distended, mildly tender to palpation diffusely, diminished bowel sounds; large open excoriated area around PEG tube Extremities: No cyanosis, clubbing or edema; right ankle deformity Neuro: Aphasic, contracted Results Laboratory Results: 09/30/16 05:23 09/30/16 05:23 09/30/16 09/30/16 05:23 05:23 WBC 6.9 RBC 3.59 L Hgb 10.9 L Hct 33.9 L MCV 95 MCH 30.5 MCHC 32.3 RDW 16.1 H Plt Count 80 L Seg Neutrophils % 74.0 Lymphocytes % 15.9 Monocytes % 7.0 Eosinophils % 3.0 Basophils % 0.1 Absolute Neutrophils 5.1 Absolute Lymphocytes 1.1 Absolute Monocytes 0.5 Absolute Eosinophils 0.2 Absolute Basophils 0.0 Sodium 161.2 H Potassium 3.3 L Chloride 126 H Carbon Dioxide 22 Anion Gap 13 BUN 21 H Creatinine 0.73 Est GFR ( Amer) > 60 Est GFR (Non-Af Amer) > 60 Glucose 123 H Calcium 7.8 L Phosphorus 2.8 Magnesium 2.3 Impressions: Chest X-Ray 09/25/16 09:14 IMPRESSION: CHRONIC INTERSTITIAL CHANGES. CHRONIC BONY DEFORMITIES. NO ACUTE RADIOGRAPHIC FINDING IN THE CHEST. Ankle X-Ray 09/26/16 00:00 IMPRESSION: Medial and lateral malleolar fractures, posterior distal right tibial articular fracture. Fracture lines are mildly displaced however the ankle mortise appears grossly intact. KUB X-Ray 09/28/16 00:00 IMPRESSION: LIMITED STUDY. NO RADIOGRAPHIC EVIDENCE FOR ACUTE ABDOMINAL DISEASE. PREVIOUSLY SEEN LARGE QUANTITY OF STOOL HAS IMPROVED. Assessment & Plan - Diagnosis (1) Sepsis Qualifiers: Sepsis type: methicillin susceptible Staphylococcus aureus Qualified Code(s): A41.01 - Sepsis due to Methicillin susceptible Staphylococcus aureus Is this a current diagnosis for this admission?: YesPlan: Patient with staph aureus bacteremia. Will place patient on Unasyn. Secondary to underlying pneumonia. (2) Aspiration pneumonia Qualifiers: Aspiration pneumonia type: unspecified Laterality: bilateral Lung location: lower lobe of lung Qualified Code(s): J69.0 - Pneumonitis due to inhalation of food and vomit Is this a current diagnosis for this admission?: YesPlan: Patient to Unasyn and clindamycin. (3) Trimalleolar fracture of ankle, closed Qualifiers: Encounter type: initial encounter Laterality: right Qualified Code(s): S82.851A - Displaced trimalleolar fracture of right lower leg, initial encounter for closed fracture Is this a current diagnosis for this admission?: YesPlan: Patient with trimalleolar fracture of the right ankle. We'll place Sathya bandage as indicated by orthopedics. Discussed with patient's son and very unclear as to cause for this type of torsion injury for this patient. Concern at this time for potential abuse will contact [facility]PS. (4) Dementia Qualifiers: Dementia type: unspecified type Dementia behavioral disturbance: without behavioral disturbance Qualified Code(s): F03.90 - Unspecified dementia without behavioral disturbance Is this a current diagnosis for this admission?: YesPlan: Supportive care Have consulted palliative care (5) Hypernatremia Is this a current diagnosis for this admission?: YesPlan: Patient on D5W. Hourly free water flushes. (6) Thrombocytopenia Is this a current diagnosis for this admission?: YesPlan: Likely secondary to sepsis. If continues to have a decrease in platelets will consider hit antibodies and antiplatelet antibodies. (7) Acute hypoxemic respiratory failure Is this a current diagnosis for this admission?: YesPlan: Continue oxygen as needed to maintain a saturation greater than 94% (8) Encephalopathy Is this a current diagnosis for this admission?: YesPlan: Patient appears to be altered more than baseline likely secondary to hypernatremia. (9) Hypertension Qualifiers: Hypertension type: essential hypertension Qualified Code(s): I10 - Essential (primary) hypertension Is this a current diagnosis for this admission?: YesPlan: Currently with good blood pressure. Will continue to monitor and add medications as needed. - Time Time Spent with patient: 25-34 minutes Medications reviewed and adjusted accordingly: Yes
[2016-10-01] MEDS: DEXTROSE 5%-WATER 1000 ML 1,000 ML IV PRN (02:34)
[2016-10-01] MEDS: AMPICILLIN SODIUM/SULBACTAM NA 3 GM in NORMAL SALINE 100 ML IV SCH ×2 (03:16→15:09)
[2016-10-01] MEDS: CLINDAMYCIN 300 MG/D5W RTU 50 ML IV SCH ×3 (05:53→22:17)
[2016-10-01] MEDS: POLYETHYLENE GLYCOL 3350 POWDER 17 GM/1 PACKET PEG SCH (10:15)
[2016-10-01] MEDS: LACTOBACILLUS ACIDOPHILUS 250 MG TAB PEG SCH ×2 (10:15→17:36)
[2016-10-01] MEDS: NYSTATIN CREAM 15 GM TP SCH ×2 (10:16→17:36)
[2016-10-01] MEDS: BACITRACIN ZINC OINTMENT 15 GM TP SCH (10:16)
[2016-10-01] MEDS ORDERED: DEXTROSE 5%-WATER 1000 ML 1,000 ML IV PRN (15:41)
--- NOTE | 2016-10-01 15:56 | PDOC PROGRESS REPORT ---
Physical Exam Vital Signs: Temp Pulse Resp BP Pulse Ox 98.3 F 69 28 H 151/68 H 96 10/01/16 12:00 10/01/16 14:13 10/01/16 12:00 10/01/16 14:13 10/01/16 12:00 Intake & Output 09/30/16 10/01/16 10/02/16 06:59 06:59 06:59 Intake Total 1013 3462 321 Balance 1013 3462 321 Exam: General: Resting comfortably, no acute respiratory distress HEENT: Atraumatic, normocephalic, pupils equal round and reactive to light, oropharynx is moist, pink, no scleral icterus, no conjunctival injection Neck: No JVD, trachea midline Chest: Clear to auscultation anteriorly, posteriorly bibasal rhonchi CV: Regular rate and rhythm, normal S1 and S2, +2/6 murmur; no rub or gallop Abdomen: Distended, mildly tender to palpation diffusely, diminished bowel sounds; mildly erythematous large open excoriated area around PEG tube Extremities: No cyanosis, clubbing or edema; right ankle deformity Neuro: Aphasic, contracted Results Laboratory Results: 09/30/16 05:23 09/30/16 05:23 Impressions: Chest X-Ray 09/25/16 09:14 IMPRESSION: CHRONIC INTERSTITIAL CHANGES. CHRONIC BONY DEFORMITIES. NO ACUTE RADIOGRAPHIC FINDING IN THE CHEST. Ankle X-Ray 09/26/16 00:00 IMPRESSION: Medial and lateral malleolar fractures, posterior distal right tibial articular fracture. Fracture lines are mildly displaced however the ankle mortise appears grossly intact. KUB X-Ray 09/28/16 00:00 IMPRESSION: LIMITED STUDY. NO RADIOGRAPHIC EVIDENCE FOR ACUTE ABDOMINAL DISEASE. PREVIOUSLY SEEN LARGE QUANTITY OF STOOL HAS IMPROVED. Assessment & Plan - Diagnosis (1) Sepsis Qualifiers: Sepsis type: methicillin susceptible Staphylococcus aureus Qualified Code(s): A41.01 - Sepsis due to Methicillin susceptible Staphylococcus aureus Is this a current diagnosis for this admission?: YesPlan: Patient with staph aureus bacteremia. Patient on Unasyn. Secondary to underlying pneumonia. (2) Staphylococcus aureus bacteremia with sepsis Is this a current diagnosis for this admission?: YesPlan: Patient on Unasyn for this. Presumptively from her pneumonia. (3) Aspiration pneumonia Qualifiers: Aspiration pneumonia type: unspecified Laterality: bilateral Lung location: lower lobe of lung Qualified Code(s): J69.0 - Pneumonitis due to inhalation of food and vomit Is this a current diagnosis for this admission?: YesPlan: Patient to Unasyn and clindamycin. (4) Trimalleolar fracture of ankle, closed Qualifiers: Encounter type: initial encounter Laterality: right Qualified Code(s): S82.851A - Displaced trimalleolar fracture of right lower leg, initial encounter for closed fracture Is this a current diagnosis for this admission?: YesPlan: Patient with trimalleolar fracture of the right ankle. We'll place Satyha bandage as indicated by orthopedics. Discussed with patient's son and very unclear as to cause for this type of torsion injury for this patient. Concern at this time for potential abuse will contact [facility]PS. (5) Dementia Qualifiers: Dementia type: unspecified type Dementia behavioral disturbance: without behavioral disturbance Qualified Code(s): F03.90 - Unspecified dementia without behavioral disturbance Is this a current diagnosis for this admission?: YesPlan: Supportive care Discussed case with patient's son. He wishes for her to continue to receive antibiotics and feedings. (6) Hypernatremia Is this a current diagnosis for this admission?: YesPlan: Improving, but not yet back to baseline. Patient on D5W. Hourly free water flushes. (7) Thrombocytopenia Is this a current diagnosis for this admission?: YesPlan: Likely secondary to sepsis. If continues to have a decrease in platelets will consider hit antibodies and antiplatelet antibodies. (8) Acute hypoxemic respiratory failure Is this a current diagnosis for this admission?: YesPlan: Continue oxygen as needed to maintain a saturation greater than 94% (9) Encephalopathy Is this a current diagnosis for this admission?: YesPlan: Patient appears to be altered more than baseline likely secondary to hypernatremia. (10) Hypertension Qualifiers: Hypertension type: essential hypertension Qualified Code(s): I10 - Essential (primary) hypertension Is this a current diagnosis for this admission?: YesPlan: Decrease IV fluids and resume Norvasc. We'll then resume Cozaar without diuretic. Presumably, and a patient with limited access to water, would avoid diuretics if at all possible. - Time Time Spent with patient: 25-34 minutes Medications reviewed and adjusted accordingly: Yes
[2016-10-02] MEDS: AMPICILLIN SODIUM/SULBACTAM NA 3 GM in NORMAL SALINE 100 ML IV SCH ×2 (04:16→15:32)
[2016-10-02 05:37] LABS: ANION GAP 8 (5-19); BLOOD UREA NITROGEN 12 mg/dL (7-20); CALCIUM 7.3 mg/dL (8.4-10.2); CARBON DIOXIDE 21 mmol/L (22-30); CHLORIDE 116 mmol/L (98-107); CREATININE RESULT 0.65 mg/dL (0.52-1.25); GLUCOSE 102 mg/dL (75-110); MAGNESIUM 1.7 mg/dL (1.6-2.3); PHOSPHORUS 2.9 mg/dL (2.5-4.5); POTASSIUM 3.4 mmol/L (3.6-5.0); SODIUM 144.6 mmol/L (137-145)
[2016-10-02 06:10] LABS: ABSOLUTE EOSINOPHILS # (AUTO) 0.3 10^3/uL (0.0-0.6); ABSOLUTE LYMPHOCYTES (AUTO) 1.4 10^3/uL (0.5-4.7); ABSOLUTE MONOCYTES (AUTO) 0.4 10^3/uL (0.1-1.4); ABSOLUTE NEUT (AUTO) 4.5 10^3/uL (1.7-8.2); BASOPHILS % (AUTO) 0.5 % (0-2); EOSINOPHILS % (AUTO) 4.6 % (0-6); HEMATOCRIT 25.8 % (36.0-47.0); LYMPHOCYTES % (AUTO) 21.6 % (13-45); MEAN CORPUSCULAR HGB CONC 33.5 g/dL (32.0-36.0); MEAN CORPUSCULAR VOLUME 93 fl (80-97); MONOCYTES % (AUTO) 5.4 % (3-13); RED BLOOD COUNT 2.79 10^6/uL (3.72-5.28); RED CELL DISTRIBUTION WIDTH 15.4 % (11.5-14.0); SEGMENTED NEUTROPHILS % (AUTO) 67.9 % (42-78); WHITE BLOOD COUNT 6.6 10^3/uL (4.0-10.5)
[2016-10-02] MEDS: CLINDAMYCIN 300 MG/D5W RTU 50 ML IV SCH ×3 (06:22→21:51)
[2016-10-02 06:33] LABS: HEMOGLOBIN 8.6 g/dL (12.0-15.5)
--- NOTE | 2016-10-02 09:30 | PDOC PROGRESS REPORT ---
Subjective Progress Note for:: 10/02/16 Subjective:: Interval history reviewed. Patient with aspiration pneumonia, reportedly with Staphylococcus bacteremia and septic. Likewise fecal impaction was present and has improved since treatment. Now on tube feedings and tolerating it well. On water flushes . Her ankle fracture treated conservatively with Sathya wrap and bandage. Serum sodium is now normal. Physical Exam Vital Signs: Temp Pulse Resp BP Pulse Ox 97.9 F 66 24 H 144/65 H 96 10/02/16 08:00 10/02/16 09:04 10/02/16 09:04 10/02/16 08:00 10/02/16 09:04 Intake & Output 10/01/16 10/02/16 10/03/16 06:59 06:59 06:59 Intake Total 3462 2817 Balance 3462 2817 General appearance: PRESENT: no acute distress, other - Demented, contracted Eye exam: PRESENT: conjunctiva pale Mouth exam: PRESENT: moist Neck exam: ABSENT: JVD Respiratory exam: PRESENT: clear to auscultation juan - Poor effort, unlabored. ABSENT: rhonchi, wheezes Cardiovascular exam: PRESENT: RRR. ABSENT: gallop GI/Abdominal exam: PRESENT: soft. ABSENT: distended, tenderness Extremities exam: PRESENT: pedal edema Psychiatric exam: ABSENT: agitated Focused psych exam: ABSENT: restlessness Skin exam: PRESENT: dry, warm. ABSENT: cyanosis Results Laboratory Results: 10/02/16 05:03 10/02/16 05:03 10/02/16 10/02/16 05:03 05:03 WBC 6.6 RBC 2.79 L Hgb 8.6 L D Hct 25.8 L MCV 93 MCH 31.0 MCHC 33.5 RDW 15.4 H Plt Count 76 L Seg Neutrophils % 67.9 Lymphocytes % 21.6 Monocytes % 5.4 Eosinophils % 4.6 Basophils % 0.5 Absolute Neutrophils 4.5 Absolute Lymphocytes 1.4 Absolute Monocytes 0.4 Absolute Eosinophils 0.3 Absolute Basophils 0.0 Sodium 144.6 Potassium 3.4 L Chloride 116 H Carbon Dioxide 21 L Anion Gap 8 BUN 12 Creatinine 0.65 Est GFR ( Amer) > 60 Est GFR (Non-Af Amer) > 60 Glucose 102 Calcium 7.3 L Phosphorus 2.9 Magnesium 1.7 Impressions: Chest X-Ray 09/25/16 09:14 IMPRESSION: CHRONIC INTERSTITIAL CHANGES. CHRONIC BONY DEFORMITIES. NO ACUTE RADIOGRAPHIC FINDING IN THE CHEST. Ankle X-Ray 09/26/16 00:00 IMPRESSION: Medial and lateral malleolar fractures, posterior distal right tibial articular fracture. Fracture lines are mildly displaced however the ankle mortise appears grossly intact. KUB X-Ray 09/28/16 00:00 IMPRESSION: LIMITED STUDY. NO RADIOGRAPHIC EVIDENCE FOR ACUTE ABDOMINAL DISEASE. PREVIOUSLY SEEN LARGE QUANTITY OF STOOL HAS IMPROVED. Assessment & Plan - Diagnosis (1) Acute hypoxemic respiratory failure Is this a current diagnosis for this admission?: Yes (2) Staphylococcus aureus bacteremia with sepsis Is this a current diagnosis for this admission?: Yes (3) Aspiration pneumonia Qualifiers: Aspiration pneumonia type: unspecified Laterality: bilateral Lung location: lower lobe of lung Qualified Code(s): J69.0 - Pneumonitis due to inhalation of food and vomit Is this a current diagnosis for this admission?: Yes (4) Hypotension Qualifiers: Hypotension type: unspecified hypotension type Qualified Code(s): I95.9 - Hypotension, unspecified Is this a current diagnosis for this admission?: Yes (5) Hypernatremia Is this a current diagnosis for this admission?: Yes (6) Fever Qualifiers: Fever type: unspecified Qualified Code(s): R50.9 - Fever, unspecified Is this a current diagnosis for this admission?: Yes (7) Thrombocytopenia Is this a current diagnosis for this admission?: Yes (8) Hyperglycemia Is this a current diagnosis for this admission?: Yes (9) Closed right ankle fracture Qualifiers: Encounter type: initial encounter Qualified Code(s): S82.891A - Other fracture of right lower leg, initial encounter for closed fracture Is this a current diagnosis for this admission?: Yes (10) Dementia Qualifiers: Dementia type: unspecified type Dementia behavioral disturbance: without behavioral disturbance Qualified Code(s): F03.90 - Unspecified dementia without behavioral disturbance Is this a current diagnosis for this admission?: Yes (11) Dysphagia Qualifiers: Dysphagia type: unspecified Qualified Code(s): R13.10 - Dysphagia, unspecified Is this a current diagnosis for this admission?: Yes (12) Hypertension Qualifiers: Hypertension type: essential hypertension Qualified Code(s): I10 - Essential (primary) hypertension Is this a current diagnosis for this admission?: Yes - Time Time Spent with patient: 25-34 minutes - Plan Summary Plan Summary: Replace electrolytes. Discontinue dextrose containing IV fluids. Continue free water flushes. Day 7 of IV antibiotics today. We will continue the patient a total of 7 days of IV antibiotics and subsequently transitioned to oral and at that time plan on sending the patient back to the [facility]. Continue supportive care.
[2016-10-02] MEDS ORDERED: MULTIVITAMIN ORAL LIQUID 60 ML NG SCH (10:00)
[2016-10-02] MEDS: AMLODIPINE BESYLATE 5 MG TABLET GT SCH (10:48)
[2016-10-02] MEDS: LANSOPRAZOLE 15 MG TAB.RAP.DR PEG SCH (10:48)
[2016-10-02] MEDS: POLYETHYLENE GLYCOL 3350 POWDER 17 GM/1 PACKET PEG SCH (10:48)
[2016-10-02] MEDS: POTASSI CL 20 MEQ/50 ML RIDER 50 ML IV SCH ×3 (10:48→15:33)
[2016-10-02] MEDS: LACTOBACILLUS ACIDOPHILUS 250 MG TAB PEG SCH ×2 (10:48→17:18)
[2016-10-02] MEDS: NYSTATIN CREAM 15 GM TP SCH ×2 (10:49→17:19)
[2016-10-02] MEDS: MULTIVITAMINS W-IRON TABLET, CHEWABLE PEG SCH (10:49)
[2016-10-02] MEDS: BACITRACIN ZINC OINTMENT 15 GM TP SCH (10:50)
[2016-10-03] MEDS: AMPICILLIN SODIUM/SULBACTAM NA 3 GM in NORMAL SALINE 100 ML IV SCH (03:46)
[2016-10-03] MEDS: CLINDAMYCIN 300 MG/D5W RTU 50 ML IV SCH (05:42)
[2016-10-03 06:16] LABS: ANION GAP 13 (5-19); BLOOD UREA NITROGEN 12 mg/dL (7-20); CALCIUM 8.3 mg/dL (8.4-10.2); CARBON DIOXIDE 21 mmol/L (22-30); CHLORIDE 118 mmol/L (98-107); CREATININE RESULT 0.68 mg/dL (0.52-1.25); GLUCOSE 101 mg/dL (75-110); POTASSIUM 4.3 mmol/L (3.6-5.0); SODIUM 152.1 mmol/L (137-145)
--- NOTE | 2016-10-03 09:31 | PDOC PROGRESS REPORT ---
Subjective Progress Note for:: 10/03/16 Subjective:: Interval history reviewed. Patient with aspiration pneumonia, reportedly with Staphylococcus bacteremia and is septic. Likewise fecal impaction was present and has improved since treatment. Now on tube feedings and reported yesterday of a possible leak. Gastrografin was done and feeding tube is patent without extravasation. Her ankle fracture was treated conservatively with Sathya wrap and bandage. Serum sodium starting to increase. Physical Exam Vital Signs: Temp Pulse Resp BP Pulse Ox 98.8 F 70 19 118/64 100 10/02/16 23:36 10/02/16 23:36 10/02/16 23:36 10/02/16 23:36 10/03/16 06:29 Intake & Output 10/02/16 10/03/16 10/04/16 06:59 06:59 06:59 Intake Total 2817 1481 Balance 2817 1481 General appearance: PRESENT: no acute distress, other - Severe contractures Head exam: PRESENT: normocephalic Eye exam: PRESENT: conjunctiva pale Mouth exam: PRESENT: moist, other - Neck contracture Neck exam: ABSENT: JVD Respiratory exam: PRESENT: rhonchi - Occasional, poor effort. ABSENT: wheezes Cardiovascular exam: PRESENT: RRR. ABSENT: gallop GI/Abdominal exam: PRESENT: hypoactive bowel sounds, soft Extremities exam: PRESENT: pedal edema - Trace Neurological exam: PRESENT: awake - Nonverbal Skin exam: PRESENT: dry, warm. ABSENT: cyanosis Results Laboratory Results: 10/02/16 05:03 10/03/16 04:09 10/03/16 04:09 Sodium 152.1 H Potassium 4.3 Chloride 118 H Carbon Dioxide 21 L Anion Gap 13 BUN 12 Creatinine 0.68 Est GFR ( Amer) > 60 Est GFR (Non-Af Amer) > 60 Glucose 101 Calcium 8.3 L Impressions: Chest X-Ray 09/25/16 09:14 IMPRESSION: CHRONIC INTERSTITIAL CHANGES. CHRONIC BONY DEFORMITIES. NO ACUTE RADIOGRAPHIC FINDING IN THE CHEST. Ankle X-Ray 09/26/16 00:00 IMPRESSION: Medial and lateral malleolar fractures, posterior distal right tibial articular fracture. Fracture lines are mildly displaced however the ankle mortise appears grossly intact. Fluoroscopy 10/02/16 00:00 IMPRESSION: THE CATHETER APPEARS TO BE IN SATISFACTORY POSITION. KUB X-Ray 10/02/16 00:00 IMPRESSION: THE CATHETER APPEARS TO BE IN SATISFACTORY POSITION. Tube Placement 10/02/16 00:00 IMPRESSION: THE CATHETER APPEARS TO BE IN SATISFACTORY POSITION. Assessment & Plan - Diagnosis (1) Acute hypoxemic respiratory failure Is this a current diagnosis for this admission?: Yes (2) Staphylococcus aureus bacteremia with sepsis Is this a current diagnosis for this admission?: Yes (3) Aspiration pneumonia Qualifiers: Aspiration pneumonia type: unspecified Laterality: bilateral Lung location: lower lobe of lung Qualified Code(s): J69.0 - Pneumonitis due to inhalation of food and vomit Is this a current diagnosis for this admission?: Yes (4) Hypotension Qualifiers: Hypotension type: unspecified hypotension type Qualified Code(s): I95.9 - Hypotension, unspecified Is this a current diagnosis for this admission?: Yes (5) Hypernatremia Is this a current diagnosis for this admission?: Yes (6) Fever Qualifiers: Fever type: unspecified Qualified Code(s): R50.9 - Fever, unspecified Is this a current diagnosis for this admission?: Yes (7) Thrombocytopenia Is this a current diagnosis for this admission?: Yes (8) Hyperglycemia Is this a current diagnosis for this admission?: Yes (9) Closed right ankle fracture Qualifiers: Encounter type: initial encounter Qualified Code(s): S82.891A - Other fracture of right lower leg, initial encounter for closed fracture Is this a current diagnosis for this admission?: Yes (10) Dementia Qualifiers: Dementia type: unspecified type Dementia behavioral disturbance: without behavioral disturbance Qualified Code(s): F03.90 - Unspecified dementia without behavioral disturbance Is this a current diagnosis for this admission?: Yes (11) Dysphagia Qualifiers: Dysphagia type: unspecified Qualified Code(s): R13.10 - Dysphagia, unspecified Is this a current diagnosis for this admission?: Yes (12) Hypertension Qualifiers: Hypertension type: essential hypertension Qualified Code(s): I10 - Essential (primary) hypertension Is this a current diagnosis for this admission?: Yes - Time Time Spent with patient: 25-34 minutes - Plan Summary Plan Summary: Resume feedings. Increase free water flushes. Recheck serum sodium in the morning. Discontinue intravenous antibiotic. Begin doxycycline via feeding tube. Continue supportive care. Recheck hematocrit.
[2016-10-03] MEDS: LACTOBACILLUS ACIDOPHILUS 250 MG TAB PEG SCH ×2 (09:45→18:21)
[2016-10-03] MEDS: AMLODIPINE BESYLATE 5 MG TABLET GT SCH (09:46)
[2016-10-03] MEDS: LANSOPRAZOLE 15 MG TAB.RAP.DR PEG SCH (09:47)
[2016-10-03] MEDS: BACITRACIN ZINC OINTMENT 15 GM TP SCH (09:53)
[2016-10-03] MEDS: NYSTATIN CREAM 15 GM TP SCH (09:53)
[2016-10-03] MEDS: POLYETHYLENE GLYCOL 3350 POWDER 17 GM/1 PACKET PEG SCH (09:54)
[2016-10-03 09:55] LABS: HEMATOCRIT 31.8 % (36.0-47.0); HEMOGLOBIN 10.3 g/dL (12.0-15.5); HGB HCT DIFFERENCE -0.9; MEAN CORPUSCULAR HEMOGLOBIN 30.4 pg (27.0-33.4); MEAN CORPUSCULAR HGB CONC 32.3 g/dL (32.0-36.0); MEAN CORPUSCULAR VOLUME 94 fl (80-97); RED BLOOD COUNT 3.39 10^6/uL (3.72-5.28); RED CELL DISTRIBUTION WIDTH 16.4 % (11.5-14.0); WHITE BLOOD COUNT 5.5 10^3/uL (4.0-10.5)
[2016-10-03] MEDS: DOXYCYCLINE HYCLATE 100 MG TABLET PO SCH ×2 (13:57→22:19)
[2016-10-03] MEDS: MULTIVITAMINS W-IRON TABLET, CHEWABLE PEG SCH (13:57)
[2016-10-04 06:26] LABS: ANION GAP 7 (5-19); BLOOD UREA NITROGEN 10 mg/dL (7-20); CALCIUM 7.7 mg/dL (8.4-10.2); CARBON DIOXIDE 23 mmol/L (22-30); CHLORIDE 113 mmol/L (98-107); CREATININE RESULT 0.58 mg/dL (0.52-1.25); GLUCOSE 99 mg/dL (75-110); POTASSIUM 4.3 mmol/L (3.6-5.0); SODIUM 142.9 mmol/L (137-145)
[2016-10-04] MEDS: AMLODIPINE BESYLATE 5 MG TABLET GT SCH (10:25)
[2016-10-04] MEDS: LANSOPRAZOLE 15 MG TAB.RAP.DR PEG SCH (10:25)
[2016-10-04] MEDS: LACTOBACILLUS ACIDOPHILUS 250 MG TAB PEG SCH (10:25)
[2016-10-04] MEDS: DOXYCYCLINE HYCLATE 100 MG TABLET PO SCH (10:26)
[2016-10-04] MEDS: POLYETHYLENE GLYCOL 3350 POWDER 17 GM/1 PACKET PEG SCH (10:26)
--- NOTE | 2016-10-04 12:49 | PDOC TRANSFER SUMMARY ---
General - Admit/Disc Date/PCP Admission Date/Primary Care Provider: 09/25/16 14:32 ALICIA DUMONT Discharge Date: 10/04/16 - Discharge Diagnosis (1) Acute hypoxemic respiratory failure Is this a current diagnosis for this admission?: Yes (2) Staphylococcus aureus bacteremia with sepsis Is this a current diagnosis for this admission?: Yes (3) Aspiration pneumonia Is this a current diagnosis for this admission?: Yes (4) Hypotension Is this a current diagnosis for this admission?: Yes (5) Hypernatremia Is this a current diagnosis for this admission?: Yes (6) Fever Is this a current diagnosis for this admission?: Yes (7) Thrombocytopenia Is this a current diagnosis for this admission?: Yes (8) Hyperglycemia Is this a current diagnosis for this admission?: Yes (9) Closed right ankle fracture Is this a current diagnosis for this admission?: Yes (10) Dementia Is this a current diagnosis for this admission?: Yes (11) Dysphagia Is this a current diagnosis for this admission?: Yes (12) Hypertension Is this a current diagnosis for this admission?: Yes - Additional Information Resuscitation Status: Do Not Resuscitate Discharge Diet: Tube Feeding (Comments) - 2Cal HN at 35ml/hr. Water flush w/ 35ml hourly. Discharge Activity: Activity As Tolerated, Balance Activity w/Rest Home Medications: Acetaminophen [Tylenol Susp 160 mg/5 mL Oral Syring] 20 ml GT Q4HP PRN 09/25/16 Amlodipine Besylate [Norvasc 5 mg Tablet] 5 mg GT DAILY 09/25/16 Lansoprazole [Prevacid 15 mg Odt Tablet] 15 mg GT DAILY 09/25/16 Multivits W-Min/Ferrous Gluc [Certa Blanquita Liquid] 15 ml GT DAILY 09/25/16 Acidoph/L.bulg/Bif.b/S.thermop [Bacid Caplet] 1 each GT BID #14 tablet 10/04/16 Albuterol Sulfate [Ventolin 0.083% Neb 2.5 mg/3 mL Ampul] 2.5 mg NEB RTQ8HP PRN vial.neb 10/04/16 Bacitracin 5,000,000 unit MC BID 30 Days 10/04/16 Clindamycin HCl [Cleocin 300 mg Capsule] 300 mg GT QID #14 capsule 10/04/16 Levofloxacin [Levaquin 750 mg Tablet] 750 mg GT DAILY #5 tablet 10/04/16 Miconazole Nitrate [Lotrimin Af] 133 gm TP BID 30 Days 10/04/16 Polyethylene Glycol 3350 [Miralax Powder 17 gm/Packet] 17 gm PEG DAILY PRN powd.pack 10/04/16 Zinc Oxide [Zinc Oxide 20% Ointment 28.35 gm] 1 applic TP TIDP PRN tube Additional Information: Apply bacitracin and Lotrimin powder to the PEG site twice a day until healed. Sathya bandage on the ankle fracture. Antibiotic Levaquin and clindamycin to continue for 5 days. History of Present Illness Admission Date/PCP: 09/25/16 14:32 ALICIA DUMONT History of Present Illness: ENID SILVA is a 89 year old female, resident of a local shelter, with advanced dementia and dysphagia on feeding tube brought to the emergency room because of fever and altered mental status. The patient is nonverbal and unable to communicate therefore history is unobtainable. In the emergency room , patient with severe contracture deformity, has a feeding tube, recent ankle fracture on the right. Serum sodium was elevated at 177. Blood pressure was noted to be low. Intravenous fluids started and the patient was referred for admission. For details please refer to history and physical examination performed by the admitting physician. Hospital Course Hospital Course: The patient was admitted to telemetry. The patient was hydrated with hypotonic intravenous fluids and the serum sodium gradually trended down. Patient developed chest congestion likely from underlying aspiration and therefore the patient was begun on intravenous antibiotic. KUB revealed fecal impaction and laxatives were given and the patient had significant bowel movement and a follow -up KUB shows improvement with decreasing the amount of stool. Blood cultures grew Staphylococcus epidermidis in aureus. The patient received appropriate antibiotics intravenously based on cultures. The patient's fever resolved. Patient was begun on tube feedings and did tolerate it and was advanced. Water flushes was given as well. Her antihypertensive medication and diuretic was discontinued. She had a recent fracture and therefore she was referred to Dr. Willett where the patient's splint was discontinued and instead Sathya bandage was placed for support. An ankle x-ray shows minimal displacement only. No further aggressive measures recommended by orthopedics. She was likewise noted to have questionable extravasation of feeding tube on her side therefore a Gastrografin study was performed showing no extravasation nor misplacement of the feeding tube. Eventually her serum sodium normalized, she completed a week of intravenous antibiotic and shifted to oral again based on sensitivities on the culture. Due to her impaction she was placed on scheduled MiraLAX and eventually she had episodes of diarrhea and subsequently this was changed to as needed. The patient improved overall, no fever or respiratory discomfort, no nausea or vomiting was noted, no significant residuals were noted. At this point the patient was transferred back to the shelter for continued long- term care. She has a healed decubitus ulcer on her left ankle. Physical Exam Vital Signs: Temp Pulse Resp BP Pulse Ox 98.2 F 65 22 H 135/63 H 100 10/04/16 11:50 10/04/16 11:50 10/04/16 11:50 10/04/16 11:50 10/04/16 11:50 Intake & Output 10/03/16 10/04/16 10/05/16 06:59 06:59 06:59 Intake Total 1481 1636 105 Balance 1481 1636 105 General appearance: PRESENT: no acute distress, other - Nonverbal Head exam: PRESENT: normocephalic Eye exam: PRESENT: conjunctiva pale Mouth exam: PRESENT: moist, other - Neck is contracted Neck exam: ABSENT: JVD Respiratory exam: PRESENT: clear to auscultation juan. ABSENT: rhonchi, wheezes Cardiovascular exam: PRESENT: RRR. ABSENT: gallop GI/Abdominal exam: PRESENT: normal bowel sounds, soft. ABSENT: distended, tenderness Extremities exam: PRESENT: pedal edema, other - Sathya bandage in the right Musculoskeletal exam: PRESENT: other - Multiple contractures on the trunk, pelvis, extremities Skin exam: PRESENT: dry, warm. ABSENT: cyanosis Results Laboratory Results: 10/03/16 04:09 10/04/16 05:11 10/04/16 05:11 Sodium 142.9 Potassium 4.3 Chloride 113 H Carbon Dioxide 23 Anion Gap 7 BUN 10 Creatinine 0.58 Est GFR ( Amer) > 60 Est GFR (Non-Af Amer) > 60 Glucose 99 Calcium 7.7 L Impressions: Chest X-Ray 09/25/16 09:14 IMPRESSION: CHRONIC INTERSTITIAL CHANGES. CHRONIC BONY DEFORMITIES. NO ACUTE RADIOGRAPHIC FINDING IN THE CHEST. Ankle X-Ray 09/26/16 00:00 IMPRESSION: Medial and lateral malleolar fractures, posterior distal right tibial articular fracture. Fracture lines are mildly displaced however the ankle mortise appears grossly intact. Fluoroscopy 10/02/16 00:00 IMPRESSION: THE CATHETER APPEARS TO BE IN SATISFACTORY POSITION. KUB X-Ray 10/02/16 00:00 IMPRESSION: THE CATHETER APPEARS TO BE IN SATISFACTORY POSITION. Tube Placement 10/02/16 00:00 IMPRESSION: THE CATHETER APPEARS TO BE IN SATISFACTORY POSITION. Transfer Plan - Disposition Transfer Plan: Transfer back to [facility] for continued long-term care. Patient will be followed by her physician in the shelter. - Time Spent with Patient Time spent with patient: Less than 30 Minutes Qualifiers PATEINT BEING DISCHARGED WITH ANY OF THE FOLLOWING DIAGNOSIS?: No Plan Discharge Plan: Primary care physician follow-up in 5 days Time Spent: Less than 30 Minutes
[2016-10-04 16:34] VITALS: BP 147/75
[2016-10-04] MEDS: MULTIVITAMINS W-IRON TABLET, CHEWABLE PEG SCH (18:27)
== END 2016-10-04 19:49 | DRG 871 ==
LOC: ER 08:38 → EH 11:43 → UNDOADMIN 11:43 → EH 14:32 → 4N 19:43
PROVIDERS: ADMIT Family Medicine; ATTEND Family Medicine
PROC: 3E0F73Z Introduction of Anti-inflammatory into Respiratory Tract, Via Natural or Artificial Opening (ICD-10-PCS; principal; 2016-09-26)
DX: A41.01 Sepsis due to Methicillin susceptible Staphylococcus aureus (principal); J96.01 Acute respiratory failure with hypoxia; J69.0 Pneumonitis due to inhalation of food and vomit; G93.40 Encephalopathy, unspecified; E87.0 Hyperosmolality and hypernatremia; D69.59 Other secondary thrombocytopenia; Z66 Do not resuscitate; R73.9 Hyperglycemia, unspecified; F03.90 Unspecified dementia, unspecified severity, without behavioral disturbance, psychotic disturbance, mood disturbance, and anxiety; R13.10 Dysphagia, unspecified; I10 Essential (primary) hypertension; K21.9 Gastro-esophageal reflux disease without esophagitis; M19.90 Unspecified osteoarthritis, unspecified site; X58.XXXA Exposure to other specified factors, initial encounter; K56.41 Fecal impaction; Z88.2 Allergy status to sulfonamides; Z88.8 Allergy status to other drugs, medicaments and biological substances; Z93.1 Gastrostomy status; S82.851D Displaced trimalleolar fracture of right lower leg, subsequent encounter for closed fracture with routine healing; X58.XXXD Exposure to other specified factors, subsequent encounter; Z88.1 Allergy status to other antibiotic agents
CPT/HCPCS: 36415; 49465; 71010; 74000; 76000; 80048; 80053; 81001; 82962; 83036; 83605; 83690; 83735; 84100; 84443; 85025; 85027; 87040; 87077; 87086; 87186; 93005; 93010; 94640; 96360; 96361; 99285; J0295; J0696; J1644; J2270; J2543; J3370; J3480; J3490; J7030; J7060; J7620